=== PATIENT | male | born 1950 | race Caucasian/White ===

== ENCOUNTER → 2017-07-03 | Outpatient (CLI) | payer OTHER ==
--- NOTE | 2017-07-03 15:39 | DIAGNOSTIC IMAGING REPORT ---
CHEST 2 VIEWS ROUTINE CLINICAL HISTORY: Left-sided chest pain COMPARISON STUDY: No previous studies for comparison. FINDINGS: The heart is normal in size. There is a somewhat unusual appearance of the right artery, as well as the right perihilar vascular structures. I suspect that this is developmental. There is no lobar consolidation. There are no pleural effusions.[ IMPRESSION: Somewhat unusual right lung vascularity, likely developmental. No evidence of acute parenchymal consolidation. Electronically signed by: Barrett Charles M.D. 07/03/2017 3:38 PM Dictated Date/Time: 07/03/2017 3:36 PM
== END | disposition home or self-care (01) ==
LOC: C.RAD1850 15:25
PROVIDERS: ATTEND Internal Medicine
DX: R07.89 Other chest pain (principal); R91.8 Other nonspecific abnormal finding of lung field